=== PATIENT | male | born 1985 | race Two or more races ===

== ENCOUNTER 2018-01-14 23:43 | Emergency (ER) | payer MEDICAID, OTHER ==
[~2018-01-14] VITALS: Ht 177.8 cm; Wt 80.0 kg
[2018-01-14] MEDS ORDERED: EPINEPHRINE 1 MG/ML, 1ML ONE (23:47)
[2018-01-14] MEDS ORDERED: DIPHENHYDRAMINE 50 MG/ML, 1ML ONE (23:47)
[2018-01-14] MEDS ORDERED: FAMOTIDINE 20 MG/2 ML ONE (23:48)
[2018-01-14] MEDS ORDERED: DEXAMETHASONE 4 MG/ML, 5ML ONE (23:56)
[2018-01-15] MEDS ORDERED: DIPHENHYDRAMINE 50 MG/ML, 1ML IVPush ONE
[2018-01-15] MEDS ORDERED: ALBUTEROL/IPRATROPIUM 2.5MG/0.5MG, 3 ML NPPB ONE
[2018-01-15] MEDS ORDERED: FAMOTIDINE 20 MG/2 ML IVPush ONE
[2018-01-15] MEDS ORDERED: DEXAMETHASONE 4 MG/ML, 1ML IVPush ONE
[2018-01-15] MEDS ORDERED: SODIUM CHLORIDE FLUSH 10ML SYR IVF ONE
[2018-01-15] MEDS ORDERED: EPINEPHRINE 1 MG/ML, 1ML IM ONE
[2018-01-15] MEDS ORDERED: SODIUM CHLORIDE 0.9% 1,000ML IVBOLUS ONE
[2018-01-15 00:33] VITALS: BP 105/60
== END 2018-01-15 01:23 | disposition home or self-care (01) ==
LOC: ED 23:59
DX: T78.05XA Anaphylactic reaction due to tree nuts and seeds, initial encounter (principal)
CPT/HCPCS: 94640; 96372; 96374; 96375; 99291; J0171; J1100; J1200; J7620; S0028